=== PATIENT | female | born 1995 | race Caucasian/White ===

== ENCOUNTER 2017-06-10 22:15 | Emergency (ER) | payer OTHER ==
[2017-06-11] MEDS: CLINDAMYCIN 300 MG INJ IM (03:06)
== END 2017-06-11 04:28 | disposition home or self-care (01) ==
LOC: FTE 22:15
DX: N64.4 Mastodynia (principal)
CPT/HCPCS: 96372; 99284-25; Z7610

== ENCOUNTER 2017-07-29 16:05 | Emergency (ER) | payer OTHER ==
[2017-07-29] MEDS: METOCLOPRAMIDE 10 MG INJ IV (19:09)
[2017-07-29] MEDS: DIPHENHYDRAMINE 50 MG INJ IV (19:09)
[2017-07-29] MEDS: SOD CHLORIDE 0.9% 1,000 ML IV (19:10)
[2017-07-29 19:25] LABS: ADD MAN DIFF? NO
[2017-07-29 19:27] LABS: BASOPHIL # 0.1 10^3/ul (0.0-0.1); BASOPHILS % 0.4 % (0.0-2.0); EOSINOPHILS # 0.1 10^3/ul (0.0-0.5); EOSINOPHILS % 0.5 % (0.0-7.0); HEMATOCRIT 42.7 % (37.0-47.0); HEMOGLOBIN 14.7 g/dl (12.0-16.0); LYMPHOCYTES % 15.1 % (15.0-51.0); MEAN CORPUSCULAR HEMOGLOBIN 30.7 pg (29.0-33.0); MEAN CORPUSCULAR HGB CONC 34.4 g/dl (32.0-37.0); MEAN CORPUSCULAR VOLUME 89.1 fl (82.0-101.0); MEAN PLATELET VOLUME 12.5 fl (7.4-10.4); MONOCYTE # 0.7 10^3/ul (0.3-0.9); MONOCYTES % 5.7 % (0.0-11.0); NEUTROPHIL # 10.1 10^3/ul (1.6-7.5); PLATELET COUNT 175 10^3/UL (140-415); RED BLOOD COUNT 4.79 10^6/ul (4.20-5.40); RED CELL DISTRIBUTION WIDTH 12.4 % (11.5-14.5)
[2017-07-29 19:27] LABS: WHITE BLOOD COUNT 12.9 10^3/ul (4.8-10.8)
[2017-07-29 19:39] LABS: ADD UMIC YES; UR AMORPHOUS CRYSTAL MANY /HPF (NONE SEEN); UR ASCORBIC ACID NEGATIVE (NEGATIVE); UR BACTERIA FEW /HPF (NONE SEEN); UR BILIRUBIN (Dip) NEGATIVE (NEGATIVE); UR BLOOD (Dip) NEGATIVE (NEGATIVE); UR CLARITY CLOUDY (CLEAR); UR COLOR YELLOW (YELLOW); UR GLUCOSE (Dip) NEGATIVE (NEGATIVE); UR KETONES (Dip) 2+ mg/dL (NEGATIVE); UR LEUKOCYTE ESTERASE (Dip) NEGATIVE Leu/ul (NEGATIVE); UR MUCUS MANY /HPF (NONE SEEN); UR NITRITE (Dip) NEGATIVE (NEGATIVE); UR RBC 0 /HPF (0-5); UR SPECIFIC GRAVITY (Dip) 1.023 (1.003-1.030); UR SQUAMOUS EPITHELIAL CELL FEW /HPF (FEW); UR TOTAL PROTEIN (Dip) NEGATIVE (NEGATIVE); UR UROBILINOGEN (Dip) NEGATIVE (NEGATIVE); UR WBC 6 /HPF (0-5)
[2017-07-29 19:44] LABS: ALANINE AMINOTRANSFERASE 18 IU/L (13-69); ALBUMIN 4.4 g/dl (3.3-4.9); ALBUMIN/GLOBULIN RATIO 1.22; ALKALINE PHOSPHATASE 71 IU/L (42-121); ANION GAP 16 (8-16); ASPARTATE AMINO TRANSFERASE 16 IU/L (15-46); BILIRUBIN,INDIRECT 0.5 mg/dl (0-1.1); BILIRUBIN,TOTAL 0.5 mg/dl (0.2-1.3); BLOOD UREA NITROGEN 12 mg/dl (7-20); CALCIUM 9.7 mg/dl (8.4-10.2); CARBON DIOXIDE 26 mmol/L (21-31); CHLORIDE 104 mmol/L (97-110); CREATININE 0.61 mg/dl (0.44-1.00); GLUCOSE 88 mg/dl (70-220); LIPASE 122 U/L (23-300); SODIUM 142 mmol/L (135-144)
== END 2017-07-29 20:48 | disposition home or self-care (01) ==
LOC: FTE 20:48
DX: R11.10 Vomiting, unspecified (principal)
CPT/HCPCS: 36415; 76801; 80053; 81001; 81025; 83690; 84702; 85025; 96374; 96375; 99285-25

== ENCOUNTER 2018-09-03 15:27 | Observation (INO) | payer OTHER ==
[2018-09-03] MEDS: SOD CHLORIDE 0.9% 1,000 ML IV (16:23)
[2018-09-03 16:27] LABS: ADD MAN DIFF? NO
[2018-09-03 16:32] LABS: ABNORMAL IP MESSAGE 1; BASOPHILS % 0.3 % (0.0-2.0); EOSINOPHILS # 0.1 10^3/ul (0.0-0.5); EOSINOPHILS % 0.8 % (0.0-7.0); HEMATOCRIT 42.7 % (37.0-47.0); HEMOGLOBIN 14.5 g/dl (12.0-16.0); LYMPHOCYTES # 1.6 10^3/ul (0.8-2.9); LYMPHOCYTES % 16.3 % (15.0-51.0); MEAN CORPUSCULAR HEMOGLOBIN 29.2 pg (29.0-33.0); MEAN CORPUSCULAR VOLUME 86.1 fl (82.0-101.0); MEAN PLATELET VOLUME 13.4 fl (7.4-10.4); MONOCYTE # 0.6 10^3/ul (0.3-0.9); MONOCYTES % 5.7 % (0.0-11.0); NEUTROPHIL # 7.4 10^3/ul (1.6-7.5); NEUTROPHILS % 76.6 % (39.0-77.0); PLATELET COUNT 133 10^3/UL (140-415); RED BLOOD COUNT 4.96 10^6/ul (4.20-5.40); RED CELL DISTRIBUTION WIDTH 13.5 % (11.5-14.5)
[2018-09-03 16:32] LABS: WHITE BLOOD COUNT 9.7 10^3/ul (4.8-10.8)
[2018-09-03 16:33] LABS: POSITIVE DIFF @See below
[2018-09-03 16:55] LABS: INR 0.91; PROTIME 12.4 Sec (11.9-14.9)
[2018-09-03 17:27] LABS: D-DIMER 9527.16 ng/ml (<460)
[2018-09-03 17:40] LABS: ALANINE AMINOTRANSFERASE 11 IU/L (13-69); ALBUMIN 4.3 g/dl (3.3-4.9); ALBUMIN/GLOBULIN RATIO 1.13; ALKALINE PHOSPHATASE 72 IU/L (42-121); ANION GAP 10 (5-13); ASPARTATE AMINO TRANSFERASE 27 IU/L (15-46); BILIRUBIN,INDIRECT 0.4 mg/dl (0-1.1); BILIRUBIN,TOTAL 0.4 mg/dl (0.2-1.3); BLOOD UREA NITROGEN 13 mg/dl (7-20); CALCIUM 9.4 mg/dl (8.4-10.2); CARBON DIOXIDE 22 mmol/L (21-31); CHLORIDE 108 mmol/L (97-110); CREATININE 0.56 mg/dl (0.44-1.00); Estimated GFR > 60 mL/min (>60); GLUCOSE 77 mg/dl (70-220); SODIUM 140 mmol/L (135-144); TOTAL PROTEIN 8.1 g/dl (6.1-8.1)
[2018-09-03] MEDS ORDERED: ONDANSETRON 4 MG INJ IV (18:00)
[2018-09-03] MEDS ORDERED: ACETAMINOPHEN 325 MG TAB PO (18:00)
[2018-09-03] MEDS: DEXTROSE 5%-LR 1,000 ML IV (21:18)
[2018-09-03] MEDS: MISOPROSTOL 200 MCG TAB PO (23:56)
[2018-09-04] MEDS: DEXTROSE 5%-LR 1,000 ML IV ×2 (05:36→13:00)
[2018-09-04] MEDS: MISOPROSTOL 200 MCG TAB PO ×3 (05:42→19:13)
[2018-09-04] MEDS: AZITHROMYCIN 500 MG TAB PO (05:44)
== END 2018-09-04 21:00 | disposition home or self-care (01) ==
LOC: MS1 09-04 00:36 → E/R 15:27 → PP2 17:37
PROVIDERS: Obstetrics & Gynecology
DX: O03.6 Delayed or excessive hemorrhage following complete or unspecified spontaneous abortion (principal)
CPT/HCPCS: 36415; 76801; 80053; 84702; 85025; 85378; 85384; 85610; 85730; 86900; 86901; 99285-25; G0378